=== PATIENT | female | born 1930 | race Caucasian/White ===

== ENCOUNTER 2016-09-07 12:56 | Emergency (ER) | payer MEDICARE, BC ==
--- NOTE | ~2016-09-07 | ER ---
PATIENT'S NAME: MAN [facility] AGE: 86 Y [address] ROOM: [place], [place] [address] LOCATION: [facility] ADMIT DATE: 09/07/2016 ER/Outpatient Report DISCHARGE DATE: 09/07/2016 FAMILY PHYSICIAN: Harjinder Navarro MD ATTENDING PHYSICIAN: Tim Alvarado Time of Arrival: 1256 hours. Time of Evaluation: 1315 hours. CHIEF COMPLAINT: Back pain. HISTORY OF PRESENT ILLNESS: The patient states for approximately a month now, she has had some mid low back pain. States for the last 2 weeks, she has had some problems with constipation and had abdominal pain off and on. She did fall on Mother's Day, June 28, 2016, was seen at the [place], diagnosed with a fracture of the C-spine. She is in a [facility] for that and is scheduled to follow up with an orthopedic doctor in September in [place]. She denies having any nausea. She has not vomited. She had a small hard bowel movement yesterday. ALLERGIES: CONTRAST DYE, SULFA, PENICILLIN. CURRENT MEDICATIONS: On her chart and reviewed by me. PAST MEDICAL HISTORY: Atrial fib, TIA, history of pulmonary emboli, hypothyroidism, DVT, hypertension. PAST SURGICAL HISTORY: Colon resection with complications of healing. SOCIAL HISTORY: The patient lives in assisted living facility in [place], [place]. She presents to the ER accompanied by her daughter. She denies use of tobacco, drugs, or alcohol. She is hard of hearing. Dr. Navarro in [place] is her primary provider. REVIEW OF SYSTEMS: All negative other than those mentioned in the HPI. PHYSICAL EXAMINATION: VITAL SIGNS: She weighs 79.2 kg, blood pressure is 138/86, pulse is 66, [facility]GE: 86 Y [address] ROOM: [place], [place] [address] LOCATION: [facility] ADMIT DATE: 09/07/2016 ER/Outpatient Report DISCHARGE DATE: 09/07/2016 FAMILY PHYSICIAN: Harjinder Navarro MD ATTENDING PHYSICIAN: Tim Alvarado respirations 16, temperature of 98 tympanic, O2 saturation is 93% on room air. GENERAL: She is awake, alert, and oriented x4. SKIN: [place], warm, and dry. RESPIRATIONS: Even and nonlabored. Lung sounds are clear throughout. HEART: Regular rate and rhythm. ABDOMEN: Soft and nondistended. Bowel sounds are present. LABORATORY DATA AND X-RAYS: X-rays were completed, reviewed with Dr. Alvarado. Lumbar spine shows degenerative disease. Three-way abdomen shows constipation without blockage. IMPRESSION: Constipation. PLAN: Home, rest, fluids. Did recommend that she drink a bottle of magnesium citrate tonight. Offered to send it home with her, the daughter said no. They would do that and get some [id number] and take it when they return to the assisted living facility. If the patient does not have a bowel movement in the next 24 to 48 hours, I did encourage her and her daughter that she follow up with Dr. Navarro or return to the ER. The patient verbalized understanding. JEREMY CHIN APRN FOR [facility]/ilana /[id number] d: 09/07/[id number] t: 09/12/16 0732, OUTPATIENT REPORT
== END 2016-09-07 15:14 | disposition disaster alternative care site (69) ==
LOC: GMED 12:56
DX: K59.00 Constipation, unspecified (principal); M51.36 Other intervertebral disc degeneration, lumbar region; I10 Essential (primary) hypertension; E03.9 Hypothyroidism, unspecified; I48.91 Unspecified atrial fibrillation; Z86.711 Personal history of pulmonary embolism; Z86.73 Personal history of transient ischemic attack (TIA), and cerebral infarction without residual deficits; Z86.718 Personal history of other venous thrombosis and embolism; Z90.49 Acquired absence of other specified parts of digestive tract; Z88.0 Allergy status to penicillin; Z88.2 Allergy status to sulfonamides; Z91.041 Radiographic dye allergy status; Z79.01 Long term (current) use of anticoagulants; Z79.2 Long term (current) use of antibiotics; Z79.899 Other long term (current) drug therapy